=== PATIENT | female | born 1940 | race Caucasian/White ===

== ENCOUNTER → 2016-05-29 | Outpatient (CLI) | payer OTHER | LOC: FIMAGING 12:17 | PROVIDERS: ATTEND Physician Assistant | DX: M54.2 Cervicalgia (principal); M50.322 Other cervical disc degeneration at C5-C6 level; M50.321 Other cervical disc degeneration at C4-C5 level ==

== ENCOUNTER 2016-11-11 02:15 | Emergency (ER) | payer OTHER ==
[2016-11-11 02:20] VITALS: O2SAT 95
--- NOTE | 2016-11-11 02:21 | EDPHY ---
H & P Stated Complaint: Nosebleed x20 minutes HPI/ROS: HPI CHIEF COMPLAINT: Epistaxis times 20 minutes HISTORY OF PRESENT ILLNESS: This patient very pleasant 76-year-old female, denies any significant medical history except breast cancer, she presents emergency room with right Peacock anterior epistaxis. Patient states this started suddenly while in bed. No trauma reported. She try placing a packing up in her nose without holding pressure it continued to bleed so she decided come the emergency room. She reports she is not on any blood thinners. She does take daily aspirin. Upon arrival to the emergency room the epistaxis has resolved. There is a clot the anterior Peacock. No posterior pharynx bleeding. Does not appear to be a posterior bleed. Past Medical History: Breast cancer Past Surgical History: No recent surgery Social History: Denies daily use drugs alcohol tobacco products. Family History: Noncontributory ROS REVIEW OF SYSTEMS: A comprehensive 10 point review of systems is otherwise negative aside from elements mentioned in the history of present illness. Exam Constitutional triage nursing summary reviewed, vital signs reviewed, awake/ alert. Eyes normal conjunctivae and sclera, EOMI, PERRLA. HENT right Peacock anterior lower aspect clotted blood present. No fresh bleeding. Posterior pharynx normal. No blood. normal inspection, atraumatic, moist mucus membranes, no epistaxis, neck supple/ no meningismus, no raccoon eyes. Respiratory clear to auscultation bilaterally, normal breath sounds, no respiratory distress, no wheezing. Cardiovascular rate normal, regular rhythm, no murmur, no edema, distal pulses normal. Gastrointestinal soft, non-tender, no rebound, no guarding, normal bowel sounds, no distension, no pulsatile mass. Genitourinary no CVA tenderness. Musculoskeletal no midline vertebral tenderness, full range of motion, no calf swelling, no tenderness of extremities, no meningismus, good pulses, neurovascularly intact. Skin pink, warm, & dry, no rash, skin atraumatic. Neurologic awake, alert and oriented x 3, AAOx3, moves all 4 extremities equally, motor intact, sensory intact, CN II-XII intact, normal cerebellar, normal vision, normal speech. Psychiatric normal mood/affect. Heme/Lymph/Immune no lymphadenopathy. Differential Diagnosis: Includes but is not limited to in a particular order epistaxis, anterior epistaxis, posterior epistaxis Medical Decision Making: Plan for this patient her bleeding has resolved on its own. Will place a nasal clamp for the next 15 minutes and then removed nasal clamp and re-evaluate. If she stays hemostatic allow her to go home. She does understand if she develops a rebleed tilt her head forward direct pressure for 20 minutes. If she is unable to get to stop return to the emergency room. Re-evaluation: 0319AM: Patient ambulated throughout the emergency room without any difficulty. No further epistaxis. Re-evaluation over Peacock. A clot as well form. She ambulated well throughout the emergency room without any further epistaxis. She has been monitored here for close to an hour. She has not had any significant bleeding here. I will allow her to go home. I have given her a bottle of Afrin. She does understand return emergency room if she develops further epistaxis. I did express to her that she should apply direct pressure for 20 minutes with a nasal clamp tilt head forward. If she cannot get the bleeding to stop she should return emergency room Source: Patient - Personal History Current Tetanus/Diphtheria Vaccine: Yes Current Tetanus Diphtheria and Acellular Pertussis (TDAP): Yes Tetanus Vaccine Date: 2007 - Medical/Surgical History Hx Asthma: No Hx Chronic Respiratory Disease: No Hx Diabetes: No Hx Cardiac Disease: No Hx Renal Disease: No Hx Cirrhosis: No Hx Alcoholism: No Hx HIV/AIDS: No Hx Splenectomy or Spleen Trauma: No Other PMH: breast CA - Social History Smoking Status: Never smoked Constitutional: Initial Vital Signs Heart Rate 95 11/11/16 02:19 Respiratory Rate 20 11/11/16 02:19 Blood Pressure 166/105 H 11/11/16 02:19 O2 Sat (%) 95 11/11/16 02:19 O2 Delivery Mode Room Air Allergies/Adverse Reactions: coconut oil Allergy (Verified 10/01/15 14:39) Home Medications: Medication Instructions Recorded Aspirin 10/01/15 Calcium 10/01/15 Multivitamin 10/01/15 Donepezil HCl 11/11/16 Departure - Departure Disposition: Home, Routine, Self-Care Clinical Impression: Epistaxis Condition: Good Instructions: Nosebleed (ED) Referrals: Rolan Barrios MD [Primary Care Provider] - As per Instructions
[2016-11-11] MEDS ORDERED: OXYMETAZOLINE 30 ML NASAL SPRAY EACHNARE ONE (02:26)
[2016-11-11 03:27] VITALS: BP 120/81; PULSE 76; RESP 16
== END 2016-11-11 03:27 | disposition home or self-care (01) ==
DX: R04.0 Epistaxis (principal); Z79.82 Long term (current) use of aspirin; Z85.3 Personal history of malignant neoplasm of breast

== ENCOUNTER → 2018-03-11 | Outpatient (CLI) | payer OTHER | LOC: FIMAGING 17:37 | PROVIDERS: ATTEND Psychiatry & Neurology Neurology | DX: F03.90 Unspecified dementia, unspecified severity, without behavioral disturbance, psychotic disturbance, mood disturbance, and anxiety (principal); G31.9 Degenerative disease of nervous system, unspecified; G95.20 Unspecified cord compression; M47.812 Spondylosis without myelopathy or radiculopathy, cervical region ==